=== PATIENT | female | born 2000 | race African-American/Black ===

== ENCOUNTER 2019-04-03 16:30 | Emergency (ER) | payer OTHER, SELFPAY ==
[2019-04-03] VITALS (9 sets, daily range): BP systolic 119–141; BP diastolic 73–100; PULSE 72–112; RESP 16–23; TEMP 36.8; O2SAT 92–100
--- NOTE | 2019-04-03 16:56 | DI.CT.S_ITS ---
PROCEDURE: CT FACIAL BONES WO CON INDICATIONS: jaw stuck open TECHNIQUE: Noncontrast 2.5 mm thick axial images acquired from the mandible through the frontal sinuses, with coronal and sagittal reformatting. For radiation dose reduction, the following was used: automated exposure control, adjustment of mA and/or kV according to patient size. COMPARISON: None. FINDINGS: Image quality: Excellent. Bones and teeth: Consistent with the given history, there is dislocation of the mandible seen, with both mandibular condyles dislocated anteriorly in relation to the condylar fossa. No fractures are seen. Orbital colvin are intact. Sinus colvin show no fracture or deformity. Nasal bones and septum are intact. Zygomatic arches are intact. Pterygoid plates are intact. Visualized portions of the skull base and auditory canals are intact. Sinuses: Paranasal sinuses are aerated, without fluid levels, mucosal thickening, or mucoceles. Mastoid air cells are aerated. Soft tissues: No edema, masses, or fluid collections. No enlarged lymph nodes. No soft tissue lacerations or debris. Vascular: Visualized vascular structures appear normal in the absence of contrast. Bony vascular foramina and canals are intact. IMPRESSION: Bilateral mandibular dislocation. No fractures are seen. Dictated by: Shay Higuera M.D. on 04/03/2019 at 16:54 Approved by: Shay Higuera M.D. on 04/03/2019 at 16:56
[2019-04-03] MEDS: MORPHINE 2 MG/ML INJ IV ×2 (17:26→18:26)
[2019-04-03] MEDS: PROPOFOL 200 MG/20 ML VIAL 125 MG IV (20:10)
--- NOTE | 2019-04-03 20:17 | DI.RAD.S_ITS ---
PROCEDURE: XR MANDIBLE MIN 4V INDICATIONS: post mandibular reduction TECHNIQUE: 4 views of the mandible were acquired. COMPARISON: [facility], CT, CT FACIAL BONES WO CON, 04/03/2019, 17:29. FINDINGS: Bones: Bilateral anterior temporomandibular joint dislocations are reduced. No suspicious bony lesions. Soft tissues: Visualized sinuses appear clear. No suspicious soft tissue densities. IMPRESSION: Bilateral anterior temporomandibular joint dislocations are reduced. Dictated by: Rica Turner M.D. on 04/03/2019 at 21:04 Approved by: Rica Turner M.D. on 04/03/2019 at 21:06
--- NOTE | 2019-04-03 20:29 | ED_ITS ---
HPI - Head Injury <TIARRA Mayfield - Last Filed: 04/03/19 21:21> General Chief complaint: Head Injury Stated complaint: yawned and jaw locked open Time Seen by Provider: 04/03/19 16:47 Source: patient and family Mode of arrival: ambulatory Limitations: no limitations History of Present Illness HPI Narrative: The patient is a 18-year-old female nonsmoker who denies any medical history who presents with a chief complaint of believing she dislocated her jaw. She states that she yawned really large, a felt a pop and then her jaw popped out. Since then she is not able to close her mouth. She states she cannot swallow and that is to offered. She states this is never happened before. She denies any falls or trauma. She denies any difficulty breathing. Related Data Allergies Allergy/AdvReac Type Severity Reaction Status Date / Time No Known Drug Allergies Allergy Verified 04/03/19 19:32 Review of Systems <TIARRA Mayfield - Last Filed: 04/03/19 21:21> Review of Systems Narrative: GENERAL: Denies chills, fatigue, malaise, fever, sweats. HEENT: See HPI RESPIRATORY: Denies dyspnea, cough, wheezing, hemoptysis, sputum. CARDIOVASCULAR: Denies chest pain, palpitations, orthopnea, edema, GASTROINTESTINAL: Denies nausea, vomiting, abdominal pain, diarrhea, constipation, melena. : Denies dysuria, frequency, incontinence, hematuria, urinary retention. MUSCULOSKELETAL: denies weakness, joint pain, or bony pain SKIN: Denies rash, skin lesions, or other NEUROLOGIC: Denies weakness, headache, numbness, change in speech, confusion, seizures, incoordination. PSYCHIATRIC: No concerning psychosocial issues. 12 point review of systems is negative except for those stated above PFSH <TIARRA Mayfield - Last Filed: 04/03/19 21:21> Medical History (Updated 04/03/19 @ 20:33 by TIARRA Mayfield) Family history non-contributory (Acute) Social History Smoking Status: Never smoker Social History Smoking Status: Never smoker Exam <TIARRA Mayfield - Last Filed: 04/03/19 21:21> Narrative Exam Narrative: GENERAL: This is a well-nourished, well-developed patient, appears uncomfortable with mouth open HEAD: Atraumatic. Normocephalic. No temporal or scalp tenderness. EYES: Pupils equal round and reactive. Extraocular motions intact. No scleral icterus. No injection or drainage. ENT: Nose without bleeding, purulent drainage or septal hematoma. Throat without erythema, tonsillar hypertrophy or exudate. Uvula midline. Airway patent. Mouth is open. Patient is unable to close mouth. No pain to palpation of TMJ bilaterally NECK: Trachea midline. No JVD or lymphadenopathy. Supple, nontender, no meningeal signs. CARDIOVASCULAR: Regular rate and rhythm without murmurs, gallops, or rubs. RESPIRATORY: Clear to auscultation. Breath sounds equal bilaterally. No wheezes, rales, or rhonchi. No cough. No increased respiratory effort. No accessory muscle use. GASTROINTESTINAL: Abdomen soft, non-tender, nondistended. No hepato- splenomegaly, or palpable masses. No guarding. EXTREMITIES: No clubbing, cyanosis, or edema. No joint tenderness, effusion, or edema noted. BACK: Nontender without deformity or crepitance. No flank tenderness. NEURO: AOx3. SKIN: No rash or erythema. Initial Vital Signs Initial Vital Signs: Vital Signs Temperature 98.3 F 04/03/19 16:38 Pulse Rate 83 04/03/19 16:38 Respiratory Rate 20 04/03/19 16:38 Blood Pressure 141/100 H 04/03/19 16:38 Pulse Oximetry 100 04/03/19 16:38 <Magaly Cisse DO - Last Filed: 04/04/19 03:32> Initial Vital Signs Initial Vital Signs: Vital Signs Temperature 98.3 F 04/03/19 16:38 Pulse Rate 83 04/03/19 16:38 Respiratory Rate 20 04/03/19 16:38 Blood Pressure 141/100 H 04/03/19 16:38 Pulse Oximetry 100 04/03/19 16:38 <Magaly Cisse DO - Last Filed: 04/04/19 03:32> Jaw Reduction Time Out Performed: Yes Pre-Treatment Medications Used: other (propofal) Technique used: downward anterior traction Reduction successful: Yes Patient Tolerated Procedure: Well Complications: none Procedural Sedation Patient Age: Patient is 5yrs or older Consent signed: Yes Time out performed: Yes Indication: fracture/dislocation reduction ASA Class: IV Mallampati Airway Classification: Class II Time of Last PO Intake: 09:00 Preparation: principal java developer applied, pulse oximeter, capnometry used, supplemental O2 applied, suction/airway equipment at bedside and IV secured IV Propofol dose (mg): 125 ED Sedation Level: Moderate (Concious) Patient Tolerated Procedure: Well Complications: none Course <TIARRA Mayfield - Last Filed: 04/03/19 21:21> Orders Ordered: ED Orders 04/03/19 20:17 XR mandible min 4V Stat Discontinued Medications Morphine Sulfate (Morphine) 2 mg IV NOW ONE Stop: 04/03/19 17:10 Last Admin: 04/03/19 17:26 Dose: 2 mg Documented by: KIANA Morphine Sulfate (Morphine) 2 mg IV NOW ONE Stop: 04/03/19 17:51 Last Admin: 04/03/19 18:26 Dose: 2 mg Documented by: KIANA Propofol (Diprivan) 50 mg IV NOW ONE Stop: 04/03/19 19:56 Last Admin: 04/03/19 20:34 Dose: Not Given Documented by: GENA Propofol (Diprivan) 125 mg IV NOW ONE Stop: 04/03/19 20:35 Last Admin: 04/03/19 20:10 Dose: 125 mg Documented by: GENA Vital Signs Vital signs: Vital Signs - 8 hr 04/03/19 20:10 04/03/19 20:15 04/03/19 20:20 Pulse Rate 79 83 88 Respiratory Rate 18 20 17 Blood Pressure [Left Arm] 134/98 H 122/79 127/81 Pulse Oximetry 98 92 100 04/03/19 20:25 04/03/19 20:30 04/03/19 20:35 Pulse Rate 82 72 85 Respiratory Rate 23 18 18 Blood Pressure [Left Arm] 122/76 138/75 119/73 Pulse Oximetry 99 99 99 04/03/19 20:40 Pulse Rate 79 Respiratory Rate 16 Blood Pressure [Left Arm] 139/94 H Pulse Oximetry 99 <Magaly Cisse DO - Last Filed: 04/04/19 03:32> Orders Ordered: ED Orders 04/03/19 20:17 XR mandible min 4V Stat Discontinued Medications Morphine Sulfate (Morphine) 2 mg IV NOW ONE Stop: 04/03/19 17:10 Last Admin: 04/03/19 17:26 Dose: 2 mg Documented by: KIANA Morphine Sulfate (Morphine) 2 mg IV NOW ONE Stop: 04/03/19 17:51 Last Admin: 04/03/19 18:26 Dose: 2 mg Documented by: KIANA Propofol (Diprivan) 50 mg IV NOW ONE Stop: 04/03/19 19:56 Last Admin: 04/03/19 20:34 Dose: Not Given Documented by: GENA Propofol (Diprivan) 125 mg IV NOW ONE Stop: 04/03/19 20:35 Last Admin: 04/03/19 20:10 Dose: 125 mg Documented by: GENA Vital Signs Vital signs: Vital Signs - 8 hr 04/03/19 20:10 04/03/19 20:15 04/03/19 20:20 Pulse Rate 79 83 88 Respiratory Rate 18 20 17 Blood Pressure [Left Arm] 134/98 H 122/79 127/81 Pulse Oximetry 98 92 100 04/03/19 20:25 04/03/19 20:30 04/03/19 20:35 Pulse Rate 82 72 85 Respiratory Rate 23 18 18 Blood Pressure [Left Arm] 122/76 138/75 119/73 Pulse Oximetry 99 99 99 04/03/19 20:40 Pulse Rate 79 Respiratory Rate 16 Blood Pressure [Left Arm] 139/94 H Pulse Oximetry 99 MDM - Head Injury <ELSIE MayfieldBC - Last Filed: 04/03/19 21:21> Lab Data Labs: Point of Care Testing Test Results Negative Urine Dip Bedside Urine Glucose Negative Bedside Urine Bilirubin - Negative Bedside Urine Ketone ++ 40 Urine Specific [place] 1.010 Bedside Urine Occult Blood - Negative Bedside Urine pH 6.5 Bedside Urine Protein - Negative Bedside Urine Urobilinogen - Negative Bedside Urine Nitrite - Negative Bedside Urine Leukocytes +/- 15 Esterase Imaging Data Face CT: Radiologist's impression: [address] [address] [address] Scan Report Signed Patient: Wisam Whitt KMR#: [id number] : 2000Acct:[id number] Age/Sex: 18 / FDate of Service: 04/03/19 Loc: ED Accession Number: [id number] Procedure: CT facial bones wo con Ordering Provider: Magaly Knutson- PROCEDURE: CT FACIAL BONES WO CON INDICATIONS: jaw stuck open TECHNIQUE: Noncontrast 2.5 mm thick axial images acquired from the mandible through the frontal sinuses, with coronal and sagittal reformatting. For radiation dose reduction, the following was used: automated exposure control, adjustment of mA and/or kV according to patient size. COMPARISON: None. FINDINGS: Image quality: Excellent. Bones and teeth: Consistent with the given history, there is dislocation of the mandible seen, with both mandibular condyles dislocated anteriorly in relation to the condylar fossa. No fractures are seen. Orbital colvin are intact. Sinus colvin show no fracture or deformity. Nasal bones and septum are intact. Zygomatic arches are intact. Pterygoid plates are intact. Visualized portions of the skull base and auditory canals are intact. Sinuses: Paranasal sinuses are aerated, without fluid levels, mucosal thickening, or mucoceles. Mastoid air cells are aerated. Soft tissues: No edema, masses, or fluid collections. No enlarged lymph nodes. No soft tissue lacerations or debris. Vascular: Visualized vascular structures appear normal in the absence of contrast. Bony vascular foramina and canals are intact. IMPRESSION: Bilateral mandibular dislocation. No fractures are seen. Dictated by: Shay Higuera M.D. on 04/03/2019 at 16:54 Approved by: Shay Higuera M.D. on 04/03/2019 at 16:56 [facility] Narrative Medical decision making narrative: The patient is a 18-year-old female who presents with a bilaterally dislocated jaw. She was given morphine in the emergency department for pain. She was signed over to Dr. Cisse for reduction under moderate sedation. <Magaly Cisse, DO - Last Filed: 04/04/19 03:32> Lab Data Labs: Point of Care Testing Test Results Negative Urine Dip Bedside Urine Glucose Negative Bedside Urine Bilirubin - Negative Bedside Urine Ketone ++ 40 Urine Specific [place] 1.010 Bedside Urine Occult Blood - Negative Bedside Urine pH 6.5 Bedside Urine Protein - Negative Bedside Urine Urobilinogen - Negative Bedside Urine Nitrite - Negative Bedside Urine Leukocytes +/- 15 Esterase Imaging Data mandibular xray: Radiologist's impression: [address] [address] XRay Report Signed Patient: Wisam Whitt KMR#: [id number] : 2000Acct:[id number] Age/Sex: 18 / FDate of Service: 04/03/19 Loc: ED Accession Number: [id number] Procedure: XR mandible min 4V Ordering Provider: Magaly Knutson PROCEDURE: XR MANDIBLE MIN 4V INDICATIONS: post mandibular reduction TECHNIQUE: 4 views of the mandible were acquired. COMPARISON: [facility], CT, CT FACIAL BONES WO CON, 04/03/2019, 17:29. FINDINGS: Bones: Bilateral anterior temporomandibular joint dislocations are reduced. No suspicious bony lesions. Soft tissues: Visualized sinuses appear clear. No suspicious soft tissue densities. IMPRESSION: Bilateral anterior temporomandibular joint dislocations are reduced. Dictated by: Rica Turner M.D. on 04/03/2019 at 21:04 Approved by: Rica Turner M.D. on 04/03/2019 at 21:06 [facility] Narrative Medical decision making narrative: Patient comes in with complaint of a tubular dislocation, patient was initially seen by our nurse practitioner, CT shows no fracture. Discussed with patient we can attempt some pain medication and reduction or if she is more comfortable sedation. We did discuss that there are more risks with conscious sedation but she would prefer to do this. Discussed risks and benefits, patient was able to be successfully reduced and repeat imaging does not show any changes. Patient was feeling much more comfortable, we discussed activities to avoid and reasons to return emergently. Discharge Plan Departure Patient Disposition: Home Clinical Impression: Closed dislocation of mandible Qualifiers: Encounter type: initial encounter Qualified Code(s): S03.00XA - Dislocation of jaw, unspecified side, initial encounter Discharge Date/Time: 04/03/19 21:31 Instructions: DI for Jaw Dislocation, DI for Moderate Sedation Activity Restrictions/Additional Instructions: Today we put your jaw bone back into place. Please be careful to not yawn, chew gum, or open your mouth too wide at this point. I suggest [id number] pain medications as well as ice and or heat as needed Please follow up with primary care provider in the next few days. Please come back to the emergency department for any acute concerns. Referrals: [facility] [Provider Group] Stand Alone Forms: Work Release Note
== END 2019-04-03 21:31 | disposition home or self-care (01) ==
PROVIDERS: Emergency Provider Nurse Practitioner Family
DX: S03.00XA Dislocation of jaw, unspecified side, initial encounter (principal)
CPT/HCPCS: 21480; 36591; 70110; 70486; 81003; 81025; 94770; 96374; 96376; 99152; 99283; 99285; 99291; J2270; J2704